=== PATIENT | male | born 1980 | race Asian ===

== ENCOUNTER 2024-02-29 19:15 | Inpatient (IN) | payer OTHER ==
[2024-02-29] MEDS ORDERED: ONDANSETRON HCL 4 MG/2 ML VIAL IVP PRN (20:00)
[2024-02-29] MEDS ORDERED: ZOLPIDEM TARTRATE 5 MG TABLET PO PRN (20:00)
[2024-02-29] MEDS ORDERED: IBUPROFEN 400 MG TABLET PO PRN (20:00)
[2024-02-29] MEDS ORDERED: BISACODYL 10 MG RECTAL RECTAL SUPPOSITORY PR PRN (20:00)
[2024-02-29] MEDS ORDERED: CEFUROXIME SODIUM 1.5 GM in DEXTROSE 5%-WATER 50 ML IV SCH (20:00)
[2024-02-29] MEDS ORDERED: BENZOCAINE/MENTHOL LOZENGE PO PRN (20:00)
[2024-02-29] MEDS ORDERED: MORPHINE SULFATE 2 MG/ML SYRINGE IVP PRN (20:00)
[2024-02-29] MEDS ORDERED: MAGNESIUM HYDROXIDE SUSPENSION 30 ML UDCUP PO PRN (20:00)
[2024-02-29 20:12] VITALS: BP 107/64; PULSE 101; RESP 19; TEMP 99.6
[2024-02-29] MEDS ORDERED: AMPICILLIN SODIUM/SULBACTAM NA 1.5 GM in SODIUM CHLORIDE 0.9% 50 ML IV SCH (20:30)
[2024-02-29] MEDS: DOCUSATE SODIUM 100 MG CAPSULE PO SCH (21:00)
[2024-02-29] MEDS: SODIUM CHLORIDE 0.9% 1,000 ML IV ONE (21:21)
[2024-02-29] MEDS: DOXYCYCLINE HYCLATE 100 MG in DEXTROSE 5%-WATER 100 ML IV SCH (21:29)
[2024-02-29 21:37] LABS: BASOPHILS % (AUTO) 0.1 % (0.0-2.0); EOSINOPHILS % (AUTO) 0 % (1.0-6.0); HEMATOCRIT 35.9 % (41-53); HEMOGLOBIN 12.1 g/dL (13.5-17.5); LYMPHOCYTES # (AUTO) 1.9 K/uL (1.0-4.8); LYMPHOCYTES % (AUTO) 30.6 % (22.0-44.0); MEAN CORPUSCULAR HGB CONC 33.8 G/dL (31.0-37.0); MEAN CORPUSCULAR VOLUME 89 fL (80-100); MONOCYTES # (AUTO) 0.7 K/uL (0.1-1.0); MONOCYTES % (AUTO) 11.2 % (2.0-9.0); NEUTROPHILS # (AUTO) 3.5 K/uL (1.8-7.7); NEUTROPHILS % (AUTO) 58.1 % (40.0-70.0); PLATELET COUNT (AUTO) 218 K/uL (150-450); RED BLOOD CELL COUNT(AUTO) 4.04 MIL/uL (4.50-5.90); RED CELL DISTRIBUTION WIDTH 13.1 % (11.5-14.5); WHITE BLOOD COUNT (AUTO) 6.1 K/uL (4.5-11.0)
[2024-02-29 21:38] LABS: ANION GAP 8 mmol/L (8-16); CALCIUM, TOTAL 8.4 mg/dL (8.8-10.5); CARBON DIOXIDE 32 mmol/L (22-29); CHLORIDE 100 mmol/L (98-107); CREATININE 1.21 mg/dL (0.60-1.30); GLOMERULAR FILTR. RATE CALC > 60 mL/min (>60); GLUCOSE,RANDOM 91 mg/dL (70-110); POTASSIUM 3.8 mmol/L (3.5-5.1); SODIUM SERUM 140 mmol/L (136-145); UREA NITROGEN, BLOOD 10 mg/dL (7-18)
[2024-02-29 21:42] LABS: LACTATE DEHYDROGENASE 279 U/L (85-227)
[2024-02-29 21:44] LABS: ALANINE AMINOTRANSFERASE 27 U/L (12-78); ALBUMIN 3.2 g/dL (3.4-5.0); ALKALINE PHOSPHATASE 40 U/L (46-116); ASPARTATE AMINOTRANSFERASE 26 U/L (15-37); BILIRUBIN,TOTAL 0.4 mg/dL (0.1-1.0); TOTAL PROTEIN, SERUM 7.3 g/dL (6.4-8.2)
[2024-02-29 21:47] LABS: LACTIC ACID 1.1 mmol/L (0.4-2.0)
[2024-03-01] MEDS ORDERED: SODIUM CHLORIDE 0.9% IV SCH ×2 (02:30)
[2024-03-01] MEDS ORDERED: SULBACTAM NA IV SCH ×2 (02:30)
[2024-03-01] MEDS ORDERED: AMPICILLIN SODIUM IV SCH ×2 (02:30)
[2024-03-01] MEDS: AMPICILLIN SODIUM/SULBACTAM NA 3 GM in SODIUM CHLORIDE 0.9% 100 ML IV SCH (02:36)
[2024-03-01 02:37] VITALS: BP 102/65; PULSE 93; RESP 20; TEMP 99.2
[2024-03-01] MEDS: ACETAMINOPHEN 325 MG TABLET PO PRN (02:44)
[2024-03-01] MEDS: GuaiFENesin/D-METHORPHAN [SUGAR-FREE] 200-20MG/10 ML SYRUP UDCUP PO PRN (02:49)
[2024-03-01] MEDS: SODIUM CHLORIDE 0.9% 1,000 ML IV ONE (03:56)
[2024-03-01 07:43] LABS: BASOPHILS % (AUTO) 0.4 % (0.0-2.0); EOSINOPHILS % (AUTO) 0 % (1.0-6.0); HEMATOCRIT 34.3 % (41-53); HEMOGLOBIN 11.6 g/dL (13.5-17.5); LYMPHOCYTES # (AUTO) 2.5 K/uL (1.0-4.8); LYMPHOCYTES % (AUTO) 39.3 % (22.0-44.0); MEAN CORPUSCULAR HEMOGLOBIN 30.1 pg (26.0-34.0); MEAN CORPUSCULAR VOLUME 89 fL (80-100); MONOCYTES # (AUTO) 0.6 K/uL (0.1-1.0); NEUTROPHILS # (AUTO) 3.3 K/uL (1.8-7.7); NEUTROPHILS % (AUTO) 51.3 % (40.0-70.0); PLATELET COUNT (AUTO) 203 K/uL (150-450); RED BLOOD CELL COUNT(AUTO) 3.87 MIL/uL (4.50-5.90); RED CELL DISTRIBUTION WIDTH 13.2 % (11.5-14.5); WHITE BLOOD COUNT (AUTO) 6.5 K/uL (4.5-11.0)
[2024-03-01 07:45] VITALS: BP 110/69; PULSE 84; RESP 20; TEMP 98.6
[2024-03-01] MEDS ORDERED: GuaiFENesin/CODEINE [SUGAR-FREE] 200-20MG/10 ML LIQUID UDCUP PO PRN (07:45)
[2024-03-01] MEDS ORDERED: BENZONATATE 100 MG CAPSULE PO PRN (07:45)
[2024-03-01 08:13] LABS: INFLUENZA A-RTPCR,COMBO POSITIVE (NEGATIVE); INFLUENZA B-RTPCR,COMBO NEGATIVE (NEGATIVE); RESPIRATORY SYNCYTIAL VRS-PCR NEGATIVE (NEGATIVE); SARS COVID19 RTPCR, COMBO NEGATIVE (NEGATIVE)
[2024-03-01] MEDS: PANTOPRAZOLE SODIUM 40 MG DR TABLET PO SCH (08:15)
[2024-03-01] MEDS ORDERED: DOCUSATE SODIUM 100 MG CAPSULE PO PRN (08:30)
[2024-03-01] MEDS ORDERED: PANTOPRAZOLE SODIUM 40 MG DR TABLET PO PRN (09:00)
[2024-03-01 09:12] LABS: ANION GAP 7 mmol/L (8-16); CALCIUM, TOTAL 7.9 mg/dL (8.8-10.5); CARBON DIOXIDE 27 mmol/L (22-29); CHLORIDE 102 mmol/L (98-107); GLOMERULAR FILTR. RATE CALC > 60 mL/min (>60); GLUCOSE,RANDOM 76 mg/dL (70-110); POTASSIUM 3.8 mmol/L (3.5-5.1); SODIUM SERUM 136 mmol/L (136-145); UREA NITROGEN, BLOOD 8 mg/dL (7-18)
[2024-03-01] MEDS ORDERED: SODIUM CHLORIDE 0.9% 1,000 ML IV ONE (09:15)
[2024-03-01] MEDS: OSELTAMIVIR PHOSPHATE 75 MG CAPSULE PO SCH (10:29)
[2024-03-01] MEDS: HYDROCODONE/CHLORPHEN POLIS 10-8 MG/5 ML ORAL.SYG PO PRN (12:34)
[2024-03-01 16:13] VITALS: BP 100/63; PULSE 97; RESP 20; TEMP 98.7
[2024-03-01 16:33] LABS: FREE T4 (FREE THYROXINE) 1.05 ng/dL (0.76-1.46); THYROID STIMULATING HORMONE 1.39 uIU/mL (0.36-3.74)
[2024-03-01] MEDS: SODIUM CHLORIDE 0.45% 1,000 ML IV ONE (16:35)
[2024-03-01 19:34] VITALS: BP 104/67; PULSE 96; RESP 20; TEMP 100.4
[2024-03-01] MEDS: MAALOX/LIDOCAINE/NYSTATIN SUSP 5 ML ORAL.SYG PO PRN (20:04)
[2024-03-01] MEDS ORDERED: PANTOPRAZOLE SODIUM 40 MG/VIAL IVP ONE (20:45)
[2024-03-01 21:38] VITALS: TEMP 98.7
[2024-03-02 03:00] VITALS: BP 122/70; PULSE 99; RESP 20; TEMP 99.1
[2024-03-02 06:25] LABS: BASOPHILS % (AUTO) 0.1 % (0.0-2.0); EOSINOPHILS % (AUTO) 0 % (1.0-6.0); HEMATOCRIT 33.4 % (41-53); HEMOGLOBIN 11.2 g/dL (13.5-17.5); LYMPHOCYTES # (AUTO) 1.8 K/uL (1.0-4.8); LYMPHOCYTES % (AUTO) 15.5 % (22.0-44.0); MEAN CORPUSCULAR HEMOGLOBIN 29.5 pg (26.0-34.0); MEAN CORPUSCULAR HGB CONC 33.5 G/dL (31.0-37.0); MEAN CORPUSCULAR VOLUME 88 fL (80-100); MONOCYTES # (AUTO) 0.7 K/uL (0.1-1.0); NEUTROPHILS # (AUTO) 9.3 K/uL (1.8-7.7); NEUTROPHILS % (AUTO) 78.4 % (40.0-70.0); PLATELET COUNT (AUTO) 201 K/uL (150-450); RED BLOOD CELL COUNT(AUTO) 3.78 MIL/uL (4.50-5.90); RED CELL DISTRIBUTION WIDTH 12.7 % (11.5-14.5); WHITE BLOOD COUNT (AUTO) 11.9 K/uL (4.5-11.0)
[2024-03-02 06:41] LABS: ANION GAP 11 mmol/L (8-16); CARBON DIOXIDE 25 mmol/L (22-29); CHLORIDE 100 mmol/L (98-107); CREATININE 0.92 mg/dL (0.60-1.30); GLOMERULAR FILTR. RATE CALC > 60 mL/min (>60); GLUCOSE,RANDOM 76 mg/dL (70-110); POTASSIUM 3.3 mmol/L (3.5-5.1); SODIUM SERUM 136 mmol/L (136-145); UREA NITROGEN, BLOOD 10 mg/dL (7-18)
[2024-03-02 07:59] VITALS: BP 112/60; PULSE 109; RESP 19; TEMP 100.8
[2024-03-02] MEDS: PANTOPRAZOLE SODIUM 40 MG/VIAL IVP SCH (08:11)
[2024-03-02] MEDS ORDERED: SODIUM CHLORIDE 0.9% 500 ML IV ONE (08:54)
[2024-03-02] MEDS ORDERED: ASCORBIC ACID 500 MG TABLET PO SCH (09:00)
[2024-03-02] MEDS: EMERGEN C PO SCH (09:14)
[2024-03-02] MEDS: MAGNESIUM SULFATE 2 GM, MVI, ADULT NO.1 WITH VIT K 10 ML, THIAMINE 100 MG, FOLIC ACID 1... IV SCH (09:14)
[2024-03-02] MEDS: ZINC SULFATE 220 MG CAPSULE PO SCH (09:15)
[2024-03-02] MEDS: KETOROLAC TROMETHAMINE 15 MG/ML VIAL IVP ONE ×2 (09:24→20:07)
[2024-03-02 09:50] VITALS: TEMP 99.2
[2024-03-02 16:20] VITALS: BP 96/55; PULSE 84; RESP 19; TEMP 97.9
[2024-03-02 19:47] VITALS: BP 115/69; PULSE 85; RESP 20; TEMP 98.1
[2024-03-02] MEDS ORDERED: SODIUM CHLORIDE 0.9% 1,000 ML ONE (19:59)
[2024-03-03] MEDS: MAGNESIUM SULFATE 2 GM, MVI, ADULT NO.1 WITH VIT K 10 ML, THIAMINE 100 MG, FOLIC ACID 1... IV ONE (03:56)
[2024-03-03 04:04] VITALS: BP 115/75; PULSE 94; RESP 20; TEMP 98.6
[2024-03-03 06:22] LABS: BASOPHILS % (AUTO) 0.1 % (0.0-2.0); EOSINOPHILS % (AUTO) 0.1 % (1.0-6.0); HEMOGLOBIN 11.1 g/dL (13.5-17.5); LYMPHOCYTES # (AUTO) 1.9 K/uL (1.0-4.8); MEAN CORPUSCULAR HEMOGLOBIN 30.1 pg (26.0-34.0); MEAN CORPUSCULAR HGB CONC 33.8 G/dL (31.0-37.0); MEAN CORPUSCULAR VOLUME 89 fL (80-100); MONOCYTES # (AUTO) 0.5 K/uL (0.1-1.0); MONOCYTES % (AUTO) 6.5 % (2.0-9.0); NEUTROPHILS # (AUTO) 5.6 K/uL (1.8-7.7); NEUTROPHILS % (AUTO) 69.3 % (40.0-70.0); PLATELET COUNT (AUTO) 192 K/uL (150-450); RED BLOOD CELL COUNT(AUTO) 3.71 MIL/uL (4.50-5.90); RED CELL DISTRIBUTION WIDTH 12.9 % (11.5-14.5)
[2024-03-03 06:35] LABS: ANION GAP 10 mmol/L (8-16); CALCIUM, TOTAL 7.8 mg/dL (8.8-10.5); CARBON DIOXIDE 25 mmol/L (22-29); CHLORIDE 104 mmol/L (98-107); CREATININE 0.82 mg/dL (0.60-1.30); GLOMERULAR FILTR. RATE CALC > 60 mL/min (>60); GLUCOSE,RANDOM 63 mg/dL (70-110); POTASSIUM 3.8 mmol/L (3.5-5.1); SODIUM SERUM 139 mmol/L (136-145); UREA NITROGEN, BLOOD 10 mg/dL (7-18)
[2024-03-03] MEDS ORDERED: IBUPROFEN 100 MG/5 ML SUSPENSION UDCUP PO PRN (07:30)
[2024-03-03 08:10] VITALS: BP 110/68; PULSE 88; RESP 19; TEMP 98.8
[2024-03-03] MEDS: KETOROLAC TROMETHAMINE 15 MG/ML VIAL IVP ONE ×2 (08:20→16:27)
[2024-03-03] MEDS ORDERED: ZINC50CA3 PO (15:39)
[2024-03-03] MEDS ORDERED: MAG30ORA11 PO (15:39)
[2024-03-03] MEDS ORDERED: DOXY-354 PO (15:39)
[2024-03-03] MEDS ORDERED: BENZ-227 PO (15:39)
[2024-03-03] MEDS ORDERED: OSEL75CA17 PO (15:39)
[2024-03-03] MEDS ORDERED: AMOX-457 PO (15:39)
[2024-03-03 15:53] VITALS: BP 107/65; PULSE 77; RESP 20; TEMP 98.2
[2024-03-03] MEDS: AMOX TR/POT CLAV 875 MG/125 MG TABLET PO ONE (16:28)
[2024-03-03] MEDS: DOXYCYCLINE HYCLATE 100 MG TABLET PO ONE (16:28)
== END 2024-03-03 17:15 | disposition home or self-care (01) | DRG 872 ==
LOC: EEVIPCON 19:15 → 4E 19:15
PROVIDERS: ADMIT Internal Medicine; ATTEND Internal Medicine
DX: A41.9 Sepsis, unspecified organism (principal); E87.6 Hypokalemia; R79.89 Other specified abnormal findings of blood chemistry; E86.0 Dehydration; J10.1 Influenza due to other identified influenza virus with other respiratory manifestations; Z20.822 Contact with and (suspected) exposure to COVID-19; R13.11 Dysphagia, oral phase; Z79.2 Long term (current) use of antibiotics; Z83.3 Family history of diabetes mellitus; Z79.899 Other long term (current) drug therapy
CPT/HCPCS: 0241U; 70491; 71045; 80048; 80053; 83605; 83615; 83735; 84145; 84439; 84443; 85025; 85651; 86308; 86631; 86738; 87040; 87070; 87205; 87430; C9113; G0378; J0295; J0697; J1885; J3411; J3475; J3480; J3490; J7030; J7040; J7050; J7060; Q9967; 36415-L1; 36415-TC